=== PATIENT | male | born 1960 | race Caucasian/White ===

== ENCOUNTER → 2024-04-13 07:42 | Outpatient (REF) | payer BC, SELFPAY | LOC: HWRAD 07:42 | PROVIDERS: ATTENDING PHYSICIAN Internal Medicine | DX: E83.52 Hypercalcemia (principal); C73 Malignant neoplasm of thyroid gland; E74.39 Other disorders of intestinal carbohydrate absorption | CPT/HCPCS: 71260; 74177; Q9967 ==

== ENCOUNTER → 2024-05-26 08:16 | Outpatient (REF) | payer BC, SELFPAY | LOC: RCS 08:16 | PROVIDERS: ATTENDING PHYSICIAN Nurse Practitioner; FAMILY PHYSICIAN Internal Medicine | DX: R06.02 Shortness of breath (principal); I48.0 Paroxysmal atrial fibrillation | CPT/HCPCS: 93306 ==

== ENCOUNTER → 2024-05-27 08:02 | Outpatient (REF) | payer BC, SELFPAY | LOC: RCS 08:02 | PROVIDERS: ATTENDING PHYSICIAN Nurse Practitioner | DX: I48.0 Paroxysmal atrial fibrillation (principal) | CPT/HCPCS: 93017; 93350 ==

== ENCOUNTER → 2024-06-24 13:18 | Outpatient (REF) | payer BC, SELFPAY | LOC: RAD 13:18 | PROVIDERS: ATTENDING PHYSICIAN Otolaryngology | DX: G44.89 Other headache syndrome (principal) | CPT/HCPCS: 70030 ==